=== PATIENT | female | born 1940 | race Caucasian/White ===

== ENCOUNTER 2017-03-01 17:54 | Emergency (ER) | payer MEDICARE, BC ==
[2017-03-01 19:07] VITALS: BP 148/78
--- NOTE | 2017-03-01 19:16 | UC ---
Lower Extremity/Ankle HPI - HPI Summary HPI Summary: Patient jumped off a 4 foot ledge 1 week ago, pain, bruising and hind foot swelling, did walk on it all week. - History of Current Complaint Chief Complaint: UCLowerExtremity Stated Complaint: LEFT FOOT INJURY Time Seen by Provider: 03/01/17 19:08 Hx Obtained From: Patient Hx Last Menstrual Period: n/a ?: No Onset/Duration: Sudden Onset, Lasting Days Severity Initially: Moderate Severity Currently: Moderate Aggravating Factor(s): Standing, Ambulation Alleviating Factor(s): Rest Able to Bear Weight: Yes - Allergies/Home Medications Allergies/Adverse Reactions: Allergies Allergy/AdvReac Type Severity Reaction Status Date / Time environmental allergy Allergy Wheezing Uncoded 03/01/17 19:02 Home Medications: Home Medications Acetaminophen TAB* [Tylenol TAB*] 325 mg PO Q4H PRN 03/01/17 [History Confirmed 03/01/17] PMH/Surg Hx/FS Hx/Imm Hx Previously Healthy: Yes - Surgical History Surgical History: Yes Surgery Procedure, Year, and Place: benign lumpectomy- 1962, cataracts - Family History Known Family History: Negative: Cardiac Disease, Hypertension - Social History Alcohol Use: Occasionally Substance Use Type: None Smoking Status (MU): Never Smoked Tobacco - Immunization History Most Recent Influenza Vaccination: April 2015 Most Recent Tetanus Shot: 12/28/12 Review of Systems Constitutional: Negative Skin: Bruising Eyes: Negative ENT: Negative Respiratory: Negative Cardiovascular: Negative Gastrointestinal: Negative Genitourinary: Negative Motor: Negative Musculoskeletal: Arthralgia, Edema, Myalgia Neurological: Negative Psychological: Negative All Other Systems Reviewed And Are Negative: Yes Physical Exam Triage Information Reviewed: Yes Appearance: Well-Appearing, Well-Nourished, Pain Distress Vital Signs: Initial Vital Signs Temp 98.7 F 03/01/17 19:02 Pulse 70 03/01/17 19:02 Resp 16 03/01/17 19:02 BP 148/78 03/01/17 19:02 Pulse Ox 100 03/01/17 19:02 Vital Signs Reviewed: Yes Eye Exam: Normal ENT Exam: Normal Dental Exam: Normal Neck exam: Normal Respiratory Exam: Normal Respiratory: Positive: Chest non-tender, Lungs clear, Normal breath sounds Cardiovascular Exam: Normal Cardiovascular: Positive: RRR, No Murmur, Pulses Normal Abdominal Exam: Normal Abdomen Description: Positive: Nontender, No Organomegaly, Soft Bowel Sounds: Positive: Present Musculoskeletal Exam: Normal Musculoskeletal: Positive: Strength Intact, ROM Limited @ - foot eversion and inversion, toe flex and ext, Edema @ - dorsum of hind foot Neurological Exam: Normal Psychological Exam: Normal Lower Extremity Course/Dx - Course Course Of Treatment: hx obtained, exam performed, meds reviewed, xray obtained, post op shoe provided, referred to ortho - Differential Dx/Diagnosis Differential Diagnosis/HQI/PQRI: Contusion, Dislocation, Fracture (Closed), Sprain, Strain Provider Diagnoses: cuneiform fracture of left foot Discharge - Discharge Plan Condition: Stable Disposition: HOME Patient Education Materials: Foot Fracture in Adults (ED) Referrals: Karly Rodriguez MD [Primary Care Provider] - Additional Instructions: 1. use the shoe for extra support, 2. take it easy on the foot 3. warm water soaks to aid ciruculation 4. Elevate foot at rest 5. Follow up with orthopedics to make sure it is healing properly.
--- NOTE | 2017-03-01 19:37 | RAD ---
HISTORY: Left foot, subacute trauma, pain and swelling COMPARISONS: None VIEWS: 3, Frontal, lateral, and oblique views of the left foot FINDINGS: BONE DENSITY: There is diffuse osteopenia. BONES: There is a comminuted nondisplaced fracture of the medial cuneiform. 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 SOFT TISSUES: Unremarkable. OTHER FINDINGS: None. IMPRESSION: OSTEOPENIA. COMMINUTED NONDISPLACED FRACTURE OF THE MEDIAL CUNEIFORM
== END 2017-03-01 20:16 | disposition home or self-care (01) ==
LOC: UCCORT 17:54
DX: S92.245A Nondisplaced fracture of medial cuneiform of left foot, initial encounter for closed fracture (principal); W17.89XA Other fall from one level to another, initial encounter; Y93.9 Activity, unspecified; Y92.9 Unspecified place or not applicable; M85.872 Other specified disorders of bone density and structure, left ankle and foot; Z98.49 Cataract extraction status, unspecified eye
CPT/HCPCS: 99212; G0463

== ENCOUNTER 2019-03-10 17:44 | Emergency (ER) | payer MEDICARE, BC ==
[2019-03-10 18:00] VITALS: BP 144/77
--- NOTE | 2019-03-10 18:06 | UC ---
General HPI - HPI Summary HPI Summary: pt noted a spot on her R ambrocio. she thinks it may be a bullseye. she mows her lawn plus has felt achy so she wantsa to ensure it is not a tick or tick bite. - History of Current Complaint Chief Complaint: Lilly Stated Complaint: TICK Time Seen by Provider: 03/10/19 18:01 Hx Obtained From: Patient Hx Last Menstrual Period: n/a Pain Intensity: 2 Associated Signs & Symptoms: Negative: Fever - Allergy/Home Medications Allergies/Adverse Reactions: Allergies Allergy/AdvReac Type Severity Reaction Status Date / Time No Known Allergies Allergy Verified 03/10/19 17:56 PMH/Surg Hx/FS Hx/Imm Hx Psychological History: Anxiety - Surgical History Surgical History: Yes Surgery Procedure, Year, and Place: benign lumpectomy- 1963, cataracts. thyroid nodule biopsy, benign 02/18/19 - Family History Known Family History: Positive: Non-Contributory Negative: Cardiac Disease, Hypertension - Social History Alcohol Use: Occasionally Substance Use Type: None Smoking Status (MU): Never Smoked Tobacco - Immunization History Most Recent Influenza Vaccination: April 2015 Most Recent Tetanus Shot: 12/28/12 Review of Systems All Other Systems Reviewed And Are Negative: No Constitutional: Negative: Fever, Chills Musculoskeletal: Negative: Decreased ROM Neurological: Negative: Weakness, Paresthesia, Numbness Physical Exam Triage Information Reviewed: Yes Appearance: Well-Appearing Vital Signs: Initial Vital Signs Temp 98 F 03/10/19 17:56 Pulse 78 03/10/19 17:56 Resp 16 03/10/19 17:56 BP 144/77 03/10/19 17:56 Pulse Ox 100 03/10/19 17:56 Vital Signs Reviewed: Yes Musculoskeletal: Positive: ROM Intact, No Edema Neurological: Positive: Alert Psychological: Positive: Age Appropriate Behavior Skin Exam: Normal, Other - R upper ambrocio has a light 1cm purple bruise with a tiny central abrasion and dark scab. There are 2 larger spots on lower ambrocio as well that are the same. Pt concerned with upper spot. No erythema, warmth or streaking. Course/Dx - Differential Dx - Multi-Symptom Differential Diagnoses: Other - not a buulseye or tick. exam c/w abrasions and a bruise. - Diagnoses Provider Diagnosis: Contusion, Abrasion Discharge ED - Sign-Out/Discharge Documenting (check all that apply): Patient Departure All imaging exams completed and their final reports reviewed: No Studies - Discharge Plan Condition: Stable Disposition: HOME Patient Education Materials: Contusion in Adults (ED), Abrasion (ED) Referrals: Karly Rodriguez MD [Primary Care Provider] - If Needed - Billing Disposition and Condition Condition: STABLE Disposition: Home - Attestation Statements Provider Attestation: This patient was not seen by me. I was available for consult. PATTIE
== END 2019-03-10 18:12 | disposition home or self-care (01) ==
LOC: UCCORT 17:44
DX: S80.811A Abrasion, right lower leg, initial encounter (principal); X58.XXXA Exposure to other specified factors, initial encounter; Y92.9 Unspecified place or not applicable
CPT/HCPCS: 99211; G0463